=== PATIENT | male | born 1945 | race Caucasian/White ===

== ENCOUNTER → 2021-08-14 | Outpatient (REF) | payer MEDICARE, BC ==
[~2021-08-14] MED LIST: ASPI81TA45 OR; COZA100T OR; GLUC1000 OR; HYDR25TA6 OR; hyzaar PO; omega-3 OR
== END ==
LOC: M SFHCDERM 14:25
PROVIDERS: ATTEND Nurse Practitioner Family
DX: D48.5 Neoplasm of uncertain behavior of skin (principal)

== ENCOUNTER 2024-03-07 10:28 | Day surgery (SDC) | payer MEDICARE ==
[~2024-03-07] VITALS: Ht 177.8 cm; Wt 86.4 kg
[~2024-03-07 10:28] MED LIST changes: +COLE1TA PO; +DICL20GE TP; +FENO160T10 PO; +GLIM4TAB5 PO; +IBUP1TAB7 PO; +LOPE1CAP5 PO; +LOSA-530 PO; +METF-839 PO; +NS 250 ML IV ONE; +PREG50CA PO; +SITA50TAB PO; +THERTAB52 PO
[2024-03-07] MEDS ORDERED: propofoL 200 MG/20 ML VIAL As Ordered ONE (11:13)
[2024-03-07] MEDS ORDERED: LIDOCAINE 2% 100MG/5ML SDV (FOR ANES.) As Ordered ONE (11:13)
[2024-03-07] MEDS ORDERED: fentaNYL 100 MCG/2 ML INJECTION As Ordered ONE (11:14)
[2024-03-07 12:08] VITALS: BP 146/75; O2SAT 95
== END 2024-03-07 12:16 | disposition home or self-care (01) ==
LOC: M OPP 10:28
PROVIDERS: ATTEND Internal Medicine Gastroenterology
DX: Z12.11 Encounter for screening for malignant neoplasm of colon (principal); Z12.12 Encounter for screening for malignant neoplasm of rectum; K64.0 First degree hemorrhoids; K57.30 Diverticulosis of large intestine without perforation or abscess without bleeding; K25.4 Chronic or unspecified gastric ulcer with hemorrhage; R12 Heartburn; E11.9 Type 2 diabetes mellitus without complications; I10 Essential (primary) hypertension; Z79.899 Other long term (current) drug therapy; Z79.84 Long term (current) use of oral hypoglycemic drugs; Z90.89 Acquired absence of other organs; Z87.891 Personal history of nicotine dependence
CPT/HCPCS: 43239; 88305; G0121; J3010